=== PATIENT | female | born 1950 | race American Indian/Alaskan Native ===

== ENCOUNTER 2016-05-29 08:43 | Emergency (ER) | payer MEDICARE, OTHER ==
[2016-05-29 09:09] LABS: Hematocrit 41.3 % (30.3-42.9); Hemoglobin 13.5 gm/dl (10.1-14.3); Mean Corpuscular HGB Conc 33 % (30-34); Mean Corpuscular Hemoglobin 27 pg (28-32); Mean Corpuscular Volume 83 fl (79-97); Red Blood Count 4.97 M/mm3 (3.65-5.03); Red Cell Distribution Width 14.5 % (13.2-15.2); White Blood Count 9.5 K/mm3 (4.5-11.0)
[2016-05-29 09:25] LABS: Platelet Count 290 K/mm3 (140-440)
[2016-05-29 09:26] LABS: Anion Gap 24 mmol/L; BUN/Creatinine Ratio 18.57; Blood Urea Nitrogen 13 mg/dL (7-17); Calcium 9.2 mg/dL (8.4-10.2); Carbon Dioxide 21 mmol/L (22-30); Chloride 98.8 mmol/L (98-107); Glucose 208 mg/dL (65-100); Potassium 4.6 mmol/L (3.6-5.0); Sodium 139 mmol/L (137-145)
[2016-05-29] MEDS ORDERED: DUONEB 0.5 MG-3 MG/3 ML SOLN IH ONE (10:03)
--- NOTE | 2016-05-29 10:58 | Emergency Department Report ---
HPI - General Chief Complaint: Chest Pain Time Seen by Provider: 05/29/16 09:57 - HPI HPI: This is a 66-year-old Afro-L[place] female presents to the emergency Department after driving herself in to be seen with complaint of shortness of breath that occurred about 8 this morning when the patient was going shopping. She says that it felt like the "breath was taken from her." This was intermittent but has occurred a few times since that time. She also has been feeling lightheaded as if she is going to pass out. She denies any actual chest pain but does describe this atypical shortness of breath. It is associated with some nausea without vomiting. She denies any fever, back pain, diaphoresis. She has a history of hypertension and vcl-sltnjsk-[id number] diabetes. No recent travel or sick contacts at home. Her primary care doctor is Dr. Vora. She does not have a master ship. She denies smoking or any illicit drug use or abuse. She has not taken anything for symptoms prior to presentation this morning ED Past Medical Hx - Medications Home Medications: Home Medications Medication Instructions Recorded Confirmed Last Taken Type Bisoprolol/Hctz [Ziac 5-6.25] 1 each PO DAILY 05/29/16 05/29/16 Unknown History amLODIPine/VALSARTAN [Exforge 1 05/29/16 Unknown History 10-320 mg Tablet] ED Review of Systems ROS: Stated complaint: CHEST PAIN Other details as noted in HPI Comment: All other systems reviewed and negative Constitutional: denies: chills, fever Eyes: denies: eye pain, eye discharge, vision change ENT: denies: ear pain, throat pain Respiratory: shortness of breath. denies: cough Cardiovascular: denies: palpitations, edema Gastrointestinal: nausea. denies: abdominal pain, vomiting, diarrhea Genitourinary: denies: urgency, dysuria, discharge Musculoskeletal: denies: back pain, joint swelling, arthralgia Skin: denies: rash, lesions Neurological: denies: headache, weakness, paresthesias Physical Exam - Physical Exam Vital Signs: Vital Signs 05/29/16 05/29/16 08:47 10:38 Temperature 97.9 F 98.7 F Pulse Rate 84 98 H Respiratory 18 14 Rate Blood Pressure 163/90 O2 Sat by Pulse 100 98 Oximetry Physical Exam: GENERAL: The patient is well-developed well-nourished. HEENT: Normocephalic. Atraumatic. Extraocular motions are intact. Patient has moist mucous membranes. Pupils equal reactive to light bilaterally. NECK: Supple. Trachea is midline. CHEST/LUNGS: Clear to auscultation. There is no respiratory distress noted. HEART/CARDIOVASCULAR: Regular. There is no tachycardia. There is no gallop rub or murmur. ABDOMEN: Abdomen is soft, nontender. Patient has normal bowel sounds. There is no abdominal distention. SKIN: There is no rash. There is no edema. There is no diaphoresis. NEURO: The patient is awake, alert, and oriented. The patient is cooperative. The patient has no focal neurologic deficits. The patient has normal speech. MUSCULOSKELETAL: There is no tenderness or deformity. There is no limitation range of motion. There is no evidence of acute injury. ED Course Vital Signs 05/29/16 05/29/16 08:47 10:38 Temperature 97.9 F 98.7 F Pulse Rate 84 98 H Respiratory 18 14 Rate Blood Pressure 163/90 O2 Sat by Pulse 100 98 Oximetry ED Medical Decision Making - Lab Data Result diagrams: 05/29/16 08:51 05/29/16 08:51 - EKG Data -: EKG Interpreted by Me EKG shows normal: sinus rhythm, axis (LAD), intervals, QRS complexes (LVH), ST- T waves (nonspecific T-wave) - EKG Data When compared to previous EKG there are: previous EKG unavailable Interpretation: LVH - Radiology Data Radiology results: report reviewed, image reviewed interpreted by me: Chest x-ray did not show any acute process. Heart is normal shape and size. No effusions. No pneumothorax. No signs of pneumonia seen. CT of the head does not show any acute process including no hemorrhage, mass, shift, diffuse edema or skull fracture. - Medical Decision Making 66-year-old female presents to the emergency department with some transient shortness of breath and some lightheadedness/dizziness. She was evaluated with physical exam, labs, imaging and EKG. Physical exam the patient has normal sinus heart amongst auscultation. There is no focal, motor or sensory deficits in her cranial nerves are intact. EKG does not show any signs of ST elevation MS or dysrhythmia. Chest x-ray does not show any acute process. CT of the head does not show any bleed, shift, mass or any acute process as well. Patient 's labs and unremarkable including negative troponins 2 and a negative d- dimer. There is no signs of infection, electrolyte abnormalities or renal insufficiency. Patient seen ambulatory in the emergency department and appears stable at doing so. The patient has not had any chest pain at any point. She no longer has any of the transient episodes of shortness of breath that she has been in the emergency department. She no longer complains of any dizziness or lightheadedness. Her workup has been unremarkable thus far. The patient has follow-up already scheduled with her primary care doctor in 5 days but has been encouraged to see him sooner. She'll be given a referral for a master ship as well. She will return to the ER with any return of her symptoms or any acute distress. - Differential Diagnosis vertigo, CVA, PE, MS, vasovagal, orthostatic hypotension Critical Care Time: No Critical care attestation.: If time is entered above; I have spent that time in minutes in the direct care of this critically ill patient, excluding procedure time. ED Disposition Clinical Impression: Dizziness, Shortness of breath Hypertension Qualifiers: Hypertension type: essential hypertension Qualified Code(s): I10 - Essential ( primary) hypertension Disposition: DISCHARGED TO HOME OR SELFCARE Is pt being admited?: No Does the pt Need Aspirin: No Condition: Good Instructions: Hypertension (ED), Diabetic Hyperglycemia (ED), Dyspnea (ED), Lightheadedness (ED), Dizziness (ED) Additional Instructions: Please follow-up with your primary care doctor in the next few days. Return to the emergency department with any return of your symptoms or any acute distress. Referrals: KEILA CESAR MD [Primary Care Provider] - 3-5 Days RASHEL FRANCISCO MD [Staff Physician] - 3-5 Days Time of Disposition: 12:47
--- NOTE | 2016-05-29 11:19 | XRay Report ---
SINGLE VIEW CHEST: HISTORY: Shortness of breath. FINDINGS: Normal cardiomediastinal silhouette. Trachea is midline. No consolidation, pneumothorax or pleural effusion. IMPRESSION: No acute cardiopulmonary findings.
--- NOTE | 2016-05-29 11:55 | Cat Scan Report ---
CT HEAD WITHOUT CONTRAST INDICATION: Dizziness. COMPARISON: None similar. FINDINGS: Noncontrast head CT demonstrates normal ventricles and sulci without acute or recent infarct, hemorrhage, mass effect or midline shift. No abnormal extra-axial fluid collections. Faint, benign bilateral basal ganglia calcifications. Posterior fossa structures and basilar cisterns appear within normal limits. Symmetric eye globes. Clear paranasal sinuses and mastoid air cells. Slight nasal septal deviation. Intact calvarium. Normal overlying scalp soft tissues. Mild atherosclerotic ICA calcifications. Radiopaque dentures. CONCLUSION: No acute intracranial CT abnormality, as described. Thank you for the opportunity to participate in this patient's care.
[2016-05-29 13:39] VITALS: BP 146/76
== END 2016-05-29 12:48 | disposition home or self-care (01) ==
LOC: ED 08:43
DX: R42 Dizziness and giddiness (principal); I10 Essential (primary) hypertension; R06.02 Shortness of breath
CPT/HCPCS: 36415; 70450; 71010; 80048; 84443; 84484; 85025; 85379; 93005; 93010

== ENCOUNTER 2019-03-08 13:34 | Emergency (ER) | payer MEDICARE, OTHER ==
--- NOTE | 2019-03-08 14:26 | Emergency Department Report ---
Blank Doc - Documentation Documentation: 68-year-old female that presents with SOB, right leg pain, and dizziness with near syncope. Uncontrolled HTN. This initial assessment/diagnostic orders/clinical plan/treatment(s) is/are subject to change based on patient's health status, clinical progression and re-assessment by fellow clinical providers in the ED. Further treatment and workup at subsequent clinical providers discretion. Patient/guardians urged not to elope from the ED as their condition may be serious if not clinically assessed and managed. Initial orders include: 1- Patient sent to MAIN ED for further evaluation and treatment 2- labs 3- EKG 4- UA 5- Ct head
[2019-03-08 14:55] LABS: Basophils # (Auto) 0.1 K/mm3 (0.0-0.1); Basophils % (Auto) 1.1 % (0.0-1.8); Eosinophils # (Auto) 0.2 K/mm3 (0.0-0.4); Eosinophils % (Auto) 2.9 % (0.0-4.3); Hematocrit 42.6 % (30.3-42.9); Hemoglobin 13.9 gm/dl (10.1-14.3); Lymphocytes % (Auto) 25.3 % (13.4-35.0); Mean Corpuscular HGB Conc 33 % (30-34); Mean Corpuscular Volume 84 fl (79-97); Monocytes # (Auto) 0.4 K/mm3 (0.0-0.8); Platelet Count 311 K/mm3 (140-440); Red Blood Count 5.08 M/mm3 (3.65-5.03); Red Cell Distribution Width 14.4 % (13.2-15.2)
--- NOTE | 2019-03-08 15:02 | XRay Report ---
CHEST 2 VIEWS INDICATION: Chest Pain. COMPARISON: 05/29/2016 FINDINGS: Support devices: None. Heart: Within normal limits. Lungs/pleura: No acute air space or interstitial disease. No pneumothorax. Additional findings: None. IMPRESSION: Unremarkable chest films. Signer Name: Jose Matson Jr, MD Signed: 03/08/2019 2:57 PM Workstation Name: [id number]
[2019-03-08 15:07] LABS: INR 0.89 (0.87-1.13)
[2019-03-08 15:08] LABS: Partial Thromboplastin Time 26.1 Sec. (24.2-36.6)
[2019-03-08 15:19] LABS: Alanine Aminotransferase 20 units/L (7-56); Albumin 4.4 g/dL (3.9-5); BUN/Creatinine Ratio 20; Blood Urea Nitrogen 14 mg/dL (7-17); Hemolysis Index 14
--- NOTE | 2019-03-08 16:20 | Vascular Lab Report ---
DUPLEX DOPPLER LOWER EXTREMITY VEINS, RIGHT INDICATION / CLINICAL INFORMATION: Right leg pain this morning. TECHNIQUE: Duplex doppler imaging was performed through the veins of the right lower extremity using venous comp ression and other maneuvers. COMPARISON: None available. FINDINGS: COMMON FEMORAL VEIN: Negative. FEMORAL VEIN: Negative. POPLITEAL VEIN: Negative. CALF VEINS: Negative. ADDITIONAL FINDINGS: None. IMPRESSION: 1. No sonographic evidence for DVT in the right lower extremity. Signer Name: Liane Mercado MD Signed: 03/08/2019 4:16 PM Workstation Name: [id number]
--- NOTE | 2019-03-08 17:02 | Cat Scan Report ---
CT head/brain wo con INDICATION / CLINICAL INFORMATION: 68 years Female; Lightheadedness/Dizziness. TECHNIQUE: Routine CT head without contrast. All CT scans at this location are performed using CT dos e reduction for ALARA by means of automated exposure control. COMPARISON: The study is compared to the previous CT of 05/29/2016. FINDINGS: BRAIN / INTRACRANIAL CONTENTS: There are persistent a small foci of calcification within the basal ga nglia. There appears be mild cerebral white matter disease most consistent with age-appropriate micro vascular angiopathy. There is no CT evidence of acute intracranial hemorrhage or significant mass eff ect. The ventricular system remains appropriate in size and configuration. ORBITS: No significant abnormality of visualized orbits. SINUSES / MASTOIDS: No significant abnormality the visualized paranasal sinuses or mastoid air cells. CRANIOCERVICAL JUNCTION: No significant abnormality. ADDITIONAL FINDINGS: None. IMPRESSION: 1. There is no CT evidence of acute intracranial process. Signer Name: Humberto Lopez MD Signed: 03/08/2019 4:58 PM Workstation Name: [id number]
[2019-03-08 18:10] VITALS: BP 157/71
[2019-03-08 18:11] LABS: Bacteria,Urine 1+ /HPF (Negative); Bilirubin,Urine NEG (Negative); Blood,Urine NEG (Negative); Color,Urine Yellow (Yellow); Protein,Urine <15 mg/dL mg/dL (Negative); Urobilinogen,Urine < 2.0 mg/dL (<2.0)
[2019-03-08] MEDS ORDERED: INSULIN REGULAR, HUMAN 100 UNITS/1 ML SUB-Q ONE (18:53)
[2019-03-08] MEDS ORDERED: ONDANSETRON 4 MG ODT TAB PO ONE (18:57)
--- NOTE | 2019-03-08 19:00 | Emergency Department Report ---
ED General Adult HPI - General Chief complaint: Dyspnea/Respdistress Stated complaint: DIZZINESS/N/V/PAIN Time Seen by Provider: 03/08/19 14:25 Source: patient Mode of arrival: Ambulatory Limitations: No Limitations - History of Present Illness Initial comments: Ms. Delgado, is a 68-year-old female that presents with SOB, right leg pain, and dizziness with near syncope. pt states episode occurred after eating fried fish sandwich meal. Uncontrolled HTN. Onset/Timin -: hour(s) Location: head, lower extremity Radiation: non-radiation Severity scale (0 -10): 4 Quality: burning Consistency: intermittent Improves with: none Worsens with: movement Associated Symptoms: nausea/vomiting, shortness of breath, other (dizziness ) Treatments Prior to Arrival: none - Related Data Home Medications Medication Instructions Recorded Confirmed Last Taken Bisoprolol/Hctz [Ziac 5-6.25] 1 each PO DAILY 05/29/16 05/29/16 Unknown amLODIPine/VALSARTAN [Exforge 1 each PO DAILY 05/29/16 05/29/16 Unknown 10-320 mg Tablet] glyBURIDE [Glyburide] 100 gm MC DAILY 05/29/16 05/29/16 Unknown Previous Rx's Medication Instructions Recorded Last Taken Type Acetaminophen [Acetaminophen TAB] 500 mg PO Q6HR PRN #30 tablet 03/08/19 Unknown Rx Ondansetron [Zofran Odt] 4 mg PO Q8HR PRN #12 tab.rapdis 03/08/19 Unknown Rx diphenhydrAMINE [Benadryl CAP] 25 mg PO Q8HR PRN #12 capsule 03/08/19 Unknown Rx Allergies Allergy/AdvReac Type Severity Reaction Status Date / Time No Known Allergies Allergy Unverified 05/29/16 08:47 ED Review of Systems ROS: Stated complaint: DIZZINESS/N/V/PAIN Other details as noted in HPI Constitutional: denies: chills, fever Eyes: denies: eye pain, eye discharge, vision change ENT: denies: ear pain, throat pain Respiratory: shortness of breath. denies: cough, wheezing Cardiovascular: denies: chest pain, palpitations Endocrine: no symptoms reported Gastrointestinal: nausea, vomiting. denies: abdominal pain, diarrhea Genitourinary: denies: urgency, dysuria, discharge Musculoskeletal: denies: back pain, joint swelling, arthralgia Skin: denies: rash, lesions Neurological: denies: headache, weakness, numbness, paresthesias, confusion, vertigo Psychiatric: denies: anxiety, depression Hematological/Lymphatic: denies: easy bleeding, easy bruising ED Past Medical Hx - Past Medical History Previous Medical History?: Yes Hx Hypertension: Yes Hx Diabetes: Yes Additional medical history: Right side breast cyst surgically removed. - Surgical History Past Surgical History?: Yes Additional Surgical History: Rt. side breast cyst surgery - Social History Smoking Status: Never Smoker Substance Use Type: None - Medications Home Medications: Home Medications Medication Instructions Recorded Confirmed Last Taken Type Bisoprolol/Hctz [Ziac 5-6.25] 1 each PO DAILY 05/29/16 05/29/16 Unknown History amLODIPine/VALSARTAN [Exforge 1 each PO DAILY 05/29/16 05/29/16 Unknown History 10-320 mg Tablet] glyBURIDE [Glyburide] 100 gm MC DAILY 05/29/16 05/29/16 Unknown History Acetaminophen [Acetaminophen TAB] 500 mg PO Q6HR PRN #30 tablet 03/08/19 Unknown Rx Ondansetron [Zofran Odt] 4 mg PO Q8HR PRN #12 tab.rapdis 03/08/19 Unknown Rx diphenhydrAMINE [Benadryl CAP] 25 mg PO Q8HR PRN #12 capsule 03/08/19 Unknown Rx ED Physical Exam - General Limitations: No Limitations General appearance: alert, in no apparent distress - Head Head exam: Present: atraumatic, normocephalic - Eye Eye exam: Present: normal appearance, PERRL, EOMI Pupils: Present: normal accommodation - ENT ENT exam: Present: mucous membranes moist - Neck Neck exam: Present: normal inspection, tenderness, full ROM. Absent: meningismus, lymphadenopathy, thyromegaly - Respiratory Respiratory exam: Present: normal lung sounds bilaterally. Absent: respiratory distress, wheezes, rales, rhonchi, stridor, chest wall tenderness, accessory muscle use, decreased breath sounds, prolonged expiratory - Cardiovascular Cardiovascular Exam: Present: regular rate, normal rhythm, normal heart sounds. Absent: systolic murmur, diastolic murmur, rubs, gallop - GI/Abdominal GI/Abdominal exam: Present: soft, normal bowel sounds. Absent: distended, tenderness, guarding, rebound, rigid, bruit, hernia - Rectal Rectal exam: Present: deferred - Extremities Exam Extremities exam: Present: full ROM, normal capillary refill, pedal edema. Absent: tenderness, joint swelling, calf tenderness - Expanded Lower Extremity Exam Right Knee exam: Present: full ROM. Absent: tenderness, swelling Lower Leg exam: Present: full ROM. Absent: tenderness, swelling, abrasion, ecchymosis, deformity, crepidus, erythema, palpable cord, Barbra's sign Neuro vascular tendon exam: Absent: pulse deficit, abnormal cap refill, motor deficit, sensory deficit, tendon deficit - Back Exam Back exam: Present: normal inspection, full ROM, muscle spasm. Absent: tenderness, CVA tenderness (R), CVA tenderness (L), vertebral tenderness, rash noted - Neurological Exam Neurological exam: Present: alert, oriented X3, CN II-XII intact, normal gait, reflexes normal. Absent: motor sensory deficit - Psychiatric Psychiatric exam: Present: normal affect, normal mood - Skin Skin exam: Present: warm, dry, intact, normal color. Absent: rash ED Course Vital Signs 03/08/19 03/08/19 03/08/19 14:25 14:29 17:26 Temperature 97.8 F Pulse Rate 88 Respiratory 18 15 Rate Blood Pressure 227/92 Blood Pressure 179/84 [Left] Blood Pressure 179/83 [Right] O2 Sat by Pulse 98 Oximetry 03/08/19 18:09 Temperature Pulse Rate 75 Respiratory Rate Blood Pressure Blood Pressure [Left] Blood Pressure 157/71 [Right] O2 Sat by Pulse Oximetry ED Medical Decision Making - Lab Data Result diagrams: 03/08/19 14:40 03/08/19 14:40 - EKG Data EKG shows normal: sinus rhythm, axis, intervals, QRS complexes, ST-T waves Rate: normal - EKG Data When compared to previous EKG there are: no significant change Interpretation: no acute changes, normal EKG (EKG interp by ed attending NSR, No ST Elevated MD, LVH ), LVH - Radiology Data Radiology results: report reviewed, image reviewed Ordering Physician: ESTELA MONROE NP Date of Service: 03/08/19 Procedure(s): XR chest routine 2V Accession Number(s): [id number] cc: ESTELA MONROE NP Fluoro Time In Minutes: CHEST 2 VIEWS INDICATION: Chest Pain. COMPARISON: 05/29/2016 FINDINGS: Support devices: None. Heart: Within normal limits. Lungs/pleura: No acute air space or interstitial disease. No pneumothorax. Additional findings: None. IMPRESSION: Unremarkable chest films. Signer Name: Jose Matson Jr, MD Signed: 03/08/2019 2:57 PM Workstation Name: [id number] Transcribed By: TTR Dictated By: JOSE MATSON JR, MD Electronically Authenticated By: JOSE MATSON JR, MD Signed Date/Time: 03/08/191456 DD/ 56 TD/TT: Ordering Physician: ESTELA MONROE NP Date of Service: 03/08/19 Procedure(s): CT head/brain wo con Accession Number(s): [id number] cc: ESTELA MONROE NP CT head/brain wo con INDICATION / CLINICAL INFORMATION: 68 years Female; Lightheadedness/Dizziness. TECHNIQUE: Routine CT head without contrast. All CT scans at this location are performed using CT dose reduction for ALARA by means of automated exposure control. COMPARISON: The study is compared to the previous CT of 05/29/2016. FINDINGS: BRAIN / INTRACRANIAL CONTENTS: There are persistent a small foci of calcification within the basal ganglia. 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 There is no CT evidence of acute intracranial hemorrhage or significant mass effect. The ventricular system remains appropriate in size and configuration. ORBITS: No significant abnormality of visualized orbits. SINUSES / MASTOIDS: No significant abnormality the visualized paranasal sinuses or mastoid air cells. CRANIOCERVICAL JUNCTION: No significant abnormality. ADDITIONAL FINDINGS: None. IMPRESSION: 1. There is no CT evidence of acute intracranial process. Signer Name: Humberto Lopez MD Signed: 03/08/2019 4:58 PM Workstation Name: [id number] Transcribed By: MR Dictated By: Humberto Lopez MD Electronically Authenticated By: Humberto Lopez MD Signed Date/Time: 03/08/191657 DD/ 54 TD/TT: Ordering Physician: ESTELA MONROE NP Date of Service: 03/08/19 Procedure(s): VL venous duplex LE RT Accession Number(s): [id number] cc: ESTELA MONROE NP DUPLEX DOPPLER LOWER EXTREMITY VEINS, RIGHT INDICATION / CLINICAL INFORMATION: Right leg pain this morning. TECHNIQUE: Duplex doppler imaging was performed through the veins of the right lower extremity using venous compression and other maneuvers. COMPARISON: None available. FINDINGS: COMMON FEMORAL VEIN: Negative. FEMORAL VEIN: Negative. POPLITEAL VEIN: Negative. CALF VEINS: Negative. ADDITIONAL FINDINGS: None. IMPRESSION: 1. No sonographic evidence for DVT in the right lower extremity. Signer Name: Liane Mercado MD Signed: 03/08/2019 4:16 PM Workstation Name: [id number] Transcribed By: DT Dictated By: Ramirez Mercado MD Electronically Authenticated By: Ramirez Mercado MD Signed Date/Time: 03/08/191615 DD/ 14 TD/TT: - Medical Decision Making CT : no acute findings, CXR: no infilttrates no opacities, US Doppler LE: normal, ekg: NSR No ST Elevated MD , LVH no changes from previous EKGs, EKG interp by ED Atteding, Trop <0.01 x 2, Heart score: 1 for hx , no cva, no dvt, b no cmp, all other labs normal accucheck noted for 109mg/dl at this time, pt states she took medications prior to arrival , pt is currently a/o x 3 ambulatory with steady gait, VS normal, there is no weakness no numbness, no cp, no sob, no n/v pt is tolerating po intake without symptoms, pt appears well and nontoxic, ambulatory wtih steady gait. pt will follow up with pcp in next 1-2 days. Critical care attestation.: If time is entered above; I have spent that time in minutes in the direct care of this critically ill patient, excluding procedure time. ED Disposition Clinical Impression: Acute pain of right lower extremity, Dizziness, Hyperglycemia Disposition: TO HOME OR SELFCARE Is pt being admited?: No Does the pt Need Aspirin: No Condition: Stable Instructions: Arthralgia (ED), Dizziness (ED), Diabetic Hyperglycemia (ED) Prescriptions: Acetaminophen [Acetaminophen TAB] 500 mg PO Q6HR PRN #30 tablet PRN Reason: pain diphenhydrAMINE [Benadryl CAP] 25 mg PO Q8HR PRN #12 capsule PRN Reason: dizziness Ondansetron [Zofran Odt] 4 mg PO Q8HR PRN #12 tab.rapdis PRN Reason: Nausea And Vomiting Referrals: PRIMARY CARE,MD [Referring] - 3-5 Days Forms: Work/School Release Form(ED) Time of Disposition: 19:36
== END 2019-03-08 19:42 | disposition home or self-care (01) ==
LOC: ED 13:34
DX: E11.65 Type 2 diabetes mellitus with hyperglycemia (principal); M79.662 Pain in left lower leg; M79.661 Pain in right lower leg; R42 Dizziness and giddiness; I10 Essential (primary) hypertension
CPT/HCPCS: 36415; 70450; 71046; 80053; 81001; 82962; 84484; 85025; 85610; 85730; 93005; 93010; Q0162